=== PATIENT | male | born 1970 | race Caucasian/White ===

== ENCOUNTER 2016-12-26 20:41 | Emergency (ER) | payer OTHER ==
--- NOTE | 2016-12-26 21:31 | ED NURSING NOTES ---
Clinical Report - Nurses [facility] [address] [place] [address] 12/26/2016 20:51 [id number] TRI[facility] Triage time 21:15 Dec 26 2016. Acuity: LEVEL 3. Chief Complaint: INJURY TO THE LEFT ARM. Alert. ANN COMA SCORE: [place] Coma Scale: 15- eyes open spontaneously (4); best verbal response- oriented x 4 (5); best motor response- obeys commands (6). --21:31 Jordon Corrales R.N. 21:17 12/26/16. BP: 140/83. HR: 99. RR: 16. O2 saturation: 97%. Temp: 98.5 F (oral). Pain level now: 810. --21:31 Jordon Corrales R.N. Weight: 107.5 kg stated. Height/Length: 70 inches Per Patient. BMI: 34. --21:25 Jordon Corrales R.N. Medications Ibuprofen Oral (Took 1000mg once today after incident). --21:19 Jordon Corrales R.N. Bactrim DS Oral. --21:23 Jordon Corrales R.N. Cephalexin Oral 500 mg x 2 tabs, 2x a day. --21:23 Jordon Corrales R.N. The following entry was struck and corrected by Jordon Corrales R.N., 21:24 (12/26/16) Reason for correction - other(correction). <<STRICKEN ENTRY-- Ibuprofen Oral. --21:19 Jordon Corrales R.N. --END STRIKE>>. Allergies Erythromycin. Definite Moderate (Hiccups to the point of nausea) --21:18 Jordon Corrales R.N. History Arrived by private vehicle. Historian: patient. Accompanied by family. Primary physician (none). ( (L) Upper arm Pain possibly from a pulled tendon. Pt states that he was lifting a 30 lb box and the incident happened.). This occurred (about 2 1/2 hours ago). ( Lifting incident). He has had weakness of the left arm. 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 PAST MEDICAL HX: Tetanus status: up-to-date. Immunizations: status is unknown. SOCIAL HX: Light tobacco smoker (cigarette)- less than 1/2 a pack per day. Alcohol use; consumes beer occasionally. No drug use. No infectious disease exposure. ABUSE ASSESSMENT: No report of abuse. FALL RISK ASSESSMENT: Fall risk assessment completed. No fall risk identified. NUTRITIONAL RISK ASSESSMENT: The nutritional risk assessment revealed no deficiencies. FUNCTIONAL ASSESSMENT: Functional assessment: no impairments noted. LEARNING NEEDS ASSESSMENT: The learning needs assessment revealed no barriers. SKIN INTEGRITY ASSESSMENT: Skin integrity risk assessment completed. No skin integrity risk identified. --21:31 Jordon Corrales R.N. PROBLEMS: Knee Injury. --21:18 Jordon Corrales R.N. Back Injury. Fall. Hypertension. --21:27 Jordon Corrales R.N. ADDITIONAL SURGERIES: Right thumb surgery . --21:18 Jordon Corrales R.N. Interventions ID band on patient. To treatment room. --21:31 Jordon Corrales R.N. PHYSICAL ASSESSMENT Ambulatory to room. GENERAL / NEURO / PSYCH: Oriented X 4. Appears in pain. EXTREMITIES: Limited ROM present in the left upper arm. Capillary refill is less than 2 seconds in the extremities. Extremity pulses are within normal limits. Neuro-vascular status intact to the extremity. Left arm: erythema. SKIN: Skin intact. Skin is warm and dry. --21:32 Jordon Corrales R.N. NURSING PROGRESS NOTES Reassurance given. Patient identifiers checked. Call light placed in reach. Side rails up. Bed placed in lowest position. Brakes of bed on. Patient ready for evaluation- chart flagged and ED physician notified. --21:32 Jordon Corrales R.N. Sling applied to left arm by obstetrics technician; distal pulses intact, sensation intact and motor function within normal limits (Instructed PT on wear and use of sling.). --22:03 John Garcia. DISPOSITION / DISCHARGE 21:54. Condition at departure: stable. No learning barriers present. Discharge instructions provided and reviewed with the patient. Reviewed medication(s) side effects, precautions, dosing and course information. Prescription(s) given to the patient. Patient verbalized understanding. Written instructions provided in Serbian. The patient was discharged home. He left the Emergency Department ambulatory and via private vehicle. --04:52 Shelia Harris R.N. 21:54 12/26/16. BP: 150/93. HR: 95. RR: 15. O2 saturation: 93% on room air. Pain level now: 05/17. --04:52 Shelia Harris R.N. Locked/Released at 12/27/2016 4:52 by Shelia Harris R.N.
--- NOTE | 2016-12-26 21:31 | ED CLINICAL REPORT ---
Clinical Report - Physicians/Mid Levels [facility] [address] [place] [address] 12/26/2016 20:51 Patient: ABBY VERNON V Time Seen: 21:57 Dec 26 2016. Arrived- By private vehicle. Historian- patient. HISTORY OF PRESENT ILLNESS Chief Complaint: Injury to the left arm. The injury happened just prior to arrival. Occurred at work. 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 Denies previous injury to the area. Patient is right-hand dominant. Incident occurred at work while lifting. Denies any direct trauma or projectile injury. Patient did not take any medications for a spread to arrival.). REVIEW OF SYSTEMS The patient sustained a laceration. He has had swelling. All systems otherwise negative, except as recorded above. PAST HISTORY The patient's dominant hand is the right. He has not had a prior injury to the same area. SOCIAL HISTORY Smoker- current status unknown. Alcohol use. No drug use. ADDITIONAL NOTES The nursing notes have been reviewed. PHYSICAL EXAM Vital Signs: 12/26/2016 21:17 BP: 140/83. HR: 99. RR: 16. O2 saturation: 97%. Temp: 98.5 F. Pain level now: 8/10. Appearance: Alert. Head: Head atraumatic. ENT: Ears normal. Nose normal. Neck: Normal inspection. CVS: Normal heart rate and rhythm. Heart sounds normal. Respiratory: No respiratory distress. No decreased air movement. Skin: Skin warm. Normal skin color. Extremities: Left clavicle area. Left shoulder. No tenderness or swelling. Left arm: tenderness and severe swelling located in the anterior aspect of upper arm. (bulge mid bicep, inability to have any flexion under resistance of left arm. full rom at wrist, good distal rail loader strength, good radial pulse). No laceration, ecchymosis, foreign body or deformity. Neuro, Vascular and Tendons: Vascular status intact. Motor intact. Neuro: Oriented X 3. PROGRESS AND PROCEDURES PROCEDURES (sling: ns intact). Course of Care: Case discussed with Dr. Medrano, who recommends follow-up in the clinic. Patient was with a sling placed, and at this time does not have a ride. patient with no signs of infectious process. Injury not consistent with fracture and thus imaging at this time is not indicated. Patient is stable. Symptoms better. Patient/family counseled. Disposition: Discharged. CLINICAL IMPRESSION Rupture of the left long head and short head of the biceps tendon. The injury location is the left upper arm. No infection present. INSTRUCTIONS Apply ice. Elevate affected areas above chest level. Wear simple sling. Do not work for seven days. (Dr. Medrano ORTHO : [address] [phone]). Prescription Medications: Hydrocodone/APAP 10mg / 325mg: take 1 orally every 6 hours as needed for pain. Dispense twenty (20). No refill. Ibuprofen 800 mg tablets: take 1 tablet orally every 8 hours for 5 days, as needed for pain. Dispense fifteen (15). No refill. (Electronically signed by Marjorie Arriola P.A.-C 12/26/2016 21:59)
--- NOTE | 2016-12-26 21:31 | ED ORDER SUMMARY ---
..... Patient: ABBY VERNON V OrderSheet [facility] VisitID: [id number] [address] [place] [address] 46y, M Registration Date/Time: 12/26/2016 ORDER SHEET Weight: 107.5 kg (stated) Allergies: Erythromycin GENERAL ORDERS: Sling - arm (21:31 12/26/2016 Stefani Arango) ([facility] 21:55 Rudy RJennifer) MEDICATION ORDERS: IV FLUIDS: ORDER SHEET NOTES: [Electronically signed by Marjorie Arriola P.A.-C (21:59 12/26/2016)] [Electronically signed by Shelia Harris R.N. (04:52 12/27/2016)] [Electronically locked/signed by Shelia Harris R.N. (04:52 12/27/2016)]
--- NOTE | 2016-12-26 21:31 | ED NURSING NOTES ---
Clinical Report - Nurses [facility] [address] [place] [address] 12/26/2016 20:51 [id number] TRIAGE Triage time 21:15 Dec 26 2016. Acuity: LEVEL 3. Chief Complaint: INJURY TO THE LEFT ARM. Alert. ANN COMA SCORE: [place] Coma Scale: 15- eyes open spontaneously (4); best verbal response- oriented x 4 (5); best motor response- obeys commands (6). --21:31 Jorodn Corrales R.N. 21:17 12/26/16. BP: 140/83. HR: 99. RR: 16. O2 saturation: 97%. Temp: 98.5 F (oral). Pain level now: 810. --21:31 Jordon Corrales R.N. Weight: 107.5 kg stated. Height/Length: 70 inches Per Patient. BMI: 34. --21:25 Jordon Corrales R.N. Medications Ibuprofen Oral (Took 1000mg once today after incident). --21:19 Jordon Corrales R.N. Bactrim DS Oral. --21:23 Jordon Corrales R.N. Cephalexin Oral 500 mg x 2 tabs, 2x a day. --21:23 Jordon Corrales R.N. The following entry was struck and corrected by Jordon Corrales R.N., 21:24 (12/26/16) Reason for correction - other(correction). <<STRICKEN ENTRY-- Ibuprofen Oral. --21:19 Jordon Corrales R.N. --END STRIKE>>. Allergies Erythromycin. Definite Moderate (Hiccups to the point of nausea) --21:18 Jordon Corrales R.N. History Arrived by private vehicle. Historian: patient. Accompanied by family. Primary physician (none). ( (L) Upper arm Pain possibly from a pulled tendon. Pt states that he was lifting a 30 lb box and the incident happened.). This occurred (about 2 1/2 hours ago). ( Lifting incident). He has had weakness of the left arm. 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 PAST MEDICAL HX: Tetanus status: up-to-date. Immunizations: status is unknown. SOCIAL HX: Light tobacco smoker (cigarette)- less than 1/2 a pack per day. Alcohol use; consumes beer occasionally. No drug use. No infectious disease exposure. ABUSE ASSESSMENT: No report of abuse. FALL RISK ASSESSMENT: Fall risk assessment completed. No fall risk identified. NUTRITIONAL RISK ASSESSMENT: The nutritional risk assessment revealed no deficiencies. FUNCTIONAL ASSESSMENT: Functional assessment: no impairments noted. LEARNING NEEDS ASSESSMENT: The learning needs assessment revealed no barriers. SKIN INTEGRITY ASSESSMENT: Skin integrity risk assessment completed. No skin integrity risk identified. --21:31 Jordon Corrales R.N. PROBLEMS: Knee Injury. --21:18 Jordon Corrales R.N. Back Injury. Fall. Hypertension. --21:27 Jordon Corrales R.N. ADDITIONAL SURGERIES: Right thumb surgery . --21:18 Jordon Corrales R.N. Interventions ID band on patient. To treatment room. --21:31 Jordon Corrales R.N. PHYSICAL ASSESSMENT Ambulatory to room. GENERAL / NEURO / PSYCH: Oriented X 4. Appears in pain. EXTREMITIES: Limited ROM present in the left upper arm. Capillary refill is less than 2 seconds in the extremities. Extremity pulses are within normal limits. Neuro-vascular status intact to the extremity. Left arm: erythema. SKIN: Skin intact. Skin is warm and dry. --21:32 Jordon Corrales R.N. NURSING PROGRESS NOTES Reassurance given. Patient identifiers checked. Call light placed in reach. Side rails up. Bed placed in lowest position. Brakes of bed on. Patient ready for evaluation- chart flagged and ED physician notified. --21:32 Jordon Corrales R.N. Sling applied to left arm by service desk technician; distal pulses intact, sensation intact and motor function within normal limits (Instructed PT on wear and use of sling.). --22:03 John Garcia. DISPOSITION / DISCHARGE 21:54. Condition at departure: stable. No learning barriers present. Discharge instructions provided and reviewed with the patient. Reviewed medication(s) side effects, precautions, dosing and course information. Prescription(s) given to the patient. Patient verbalized understanding. Written instructions provided in Portuguese. The patient was discharged home. He left the Emergency Department ambulatory and via private vehicle. --04:52 Shelia Harris R.N. 21:54 12/26/16. BP: 150/93. HR: 95. RR: 15. O2 saturation: 93% on room air. Pain level now: 05/17. --04:52 Shelia Harris R.N. Locked/Released at 12/27/2016 4:52 by Shelia Harris R.N.
--- NOTE | 2016-12-26 21:31 | ED CLINICAL REPORT ---
Clinical Report - Physicians/Mid Levels [facility] [address] [place] [address] 12/26/2016 20:51 Patient: ABBY VERNON V Time Seen: 21:57 Dec 26 2016. Arrived- By private vehicle. Historian- patient. HISTORY OF PRESENT ILLNESS Chief Complaint: Injury to the left arm. The injury happened just prior to arrival. Occurred at work. 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 Denies previous injury to the area. Patient is right-hand dominant. Incident occurred at work while lifting. Denies any direct trauma or projectile injury. Patient did not take any medications for a spread to arrival.). REVIEW OF SYSTEMS The patient sustained a laceration. He has had swelling. All systems otherwise negative, except as recorded above. PAST HISTORY The patient's dominant hand is the right. He has not had a prior injury to the same area. SOCIAL HISTORY Smoker- current status unknown. Alcohol use. No drug use. ADDITIONAL NOTES The nursing notes have been reviewed. PHYSICAL EXAM Vital Signs: 12/26/2016 21:17 BP: 140/83. HR: 99. RR: 16. O2 saturation: 97%. Temp: 98.5 F. Pain level now: 8/10. Appearance: Alert. Head: Head atraumatic. ENT: Ears normal. Nose normal. Neck: Normal inspection. CVS: Normal heart rate and rhythm. Heart sounds normal. Respiratory: No respiratory distress. No decreased air movement. Skin: Skin warm. Normal skin color. Extremities: Left clavicle area. Left shoulder. No tenderness or swelling. Left arm: tenderness and severe swelling located in the anterior aspect of upper arm. (bulge mid bicep, inability to have any flexion under resistance of left arm. full rom at wrist, good distal chocolate refining roller strength, good radial pulse). No laceration, ecchymosis, foreign body or deformity. Neuro, Vascular and Tendons: Vascular status intact. Motor intact. Neuro: Oriented X 3. PROGRESS AND PROCEDURES PROCEDURES (sling: ns intact). Course of Care: Case discussed with Dr. Medrano, who recommends follow-up in the clinic. Patient was with a sling placed, and at this time does not have a ride. patient with no signs of infectious process. Injury not consistent with fracture and thus imaging at this time is not indicated. Patient is stable. Symptoms better. Patient/family counseled. Disposition: Discharged. CLINICAL IMPRESSION Rupture of the left long head and short head of the biceps tendon. The injury location is the left upper arm. No infection present. INSTRUCTIONS Apply ice. Elevate affected areas above chest level. Wear simple sling. Do not work for seven days. (Dr. Medrano [facility]TH[facility] : [address] [phone]). Prescription Medications: Hydrocodone/APAP 10mg / 325mg: take 1 orally every 6 hours as needed for pain. Dispense twenty (20). No refill. Ibuprofen 800 mg tablets: take 1 tablet orally every 8 hours for 5 days, as needed for pain. Dispense fifteen (15). No refill. (Electronically signed by Marjorie Arriola P.A.-C 12/26/2016 21:59)
--- NOTE | 2016-12-26 21:31 | ED ORDER SUMMARY ---
..... Patient: ABBY VERNON V OrderSheet [facility] VisitID: [id number] [address] [place] [address] 46y, M Registration Date/Time: 12/26/2016 ORDER SHEET Weight: 107.5 kg (stated) Allergies: Erythromycin GENERAL ORDERS: Sling - arm (21:31 12/26/2016 Stefani Arango) ([facility] 21:55 Rudy RJennifer) MEDICATION ORDERS: IV FLUIDS: ORDER SHEET NOTES: [Electronically signed by Marjorie Arriola P.A.-C (21:59 12/26/2016)] [Electronically signed by Shelia Harris R.N. (04:52 12/27/2016)] [Electronically locked/signed by Shelia Harris R.N. (04:52 12/27/2016)]
--- NOTE | 2016-12-27 04:53 | ED MAR SUMMARY ---
..... Medication Administration Record [facility] [address] [place], [place] [id number] Patient: ABBY VERNON V Visit ID: [id number] 46y, M Weight: 107.5 kg Height/Length: 70 in BMI: 34 ALLERGIES: Erythromycin
--- NOTE | 2016-12-27 04:53 | ED DISCHARGE INSTRUCTIONS ---
Patient: ABBY VERNON V General Instructions [facility] VisitID: [id number] [place] [address] 46y, M Registration Date/Time: 12/26/2016 Rupture of the left long head and short head of the biceps tendon. The injury location is the left upper arm. No infection present. INSTRUCTIONS Apply ice. Elevate affected areas above chest level. Wear simple sling. Do not work for seven days. (Dr. Medrano ORTHO : [address] [facility] [phone]). Prescription Medications: Hydrocodone/APAP 10mg / 325mg: take 1 orally every 6 hours as needed for pain. Dispense twenty (20). No refill. Ibuprofen 800 mg tablets: take 1 tablet orally every 8 hours for 5 days, as needed for pain. Dispense fifteen (15). No refill. ADDITIONAL INFORMATION Laceration, Tendon A tendon is a thick cord that joins muscle to bone and causes the joints to bend and straighten. One of your tendons has been cut. A tendon cut may be partial or complete. A complete cut of the tendon and a severe partial cut will need stitches (sutures) in the tendon. Smaller cuts in the tendon do not require stitches; however, the cut in the skin will need to be closed with stitches or rodrigo. A cut tendon takes about 6 weeks to regain its full strength. Forceful use of the tendon too soon could cause the weakened tendon to tear apart. Antibiotics may be prescribed to reduce the risk of infection in the tendon. Some tendons are located close to the nerves, therefore, it is possible to bruise or cut a nerve when you injure a tendon. This may cause numbness or weakness of the hand or foot. Because of local pain and swelling at the time of injury it can be difficult to fully assess nerve function. If you notice numbness or weakness that persists, notify your doctor. A nerve repair can be done 5-10 days after injury. Home Care: Keep the injured part elevated during the first 48 hours to reduce swelling and pain. If a splint was applied, leave it in place until your next exam (unless told otherwise). Keep the part dry when bathing by covering it in a plastic bag sealed with a rubber band at the top end. If no splint was applied, you may change the bandage after 24 hours and begin cleaning the wound once a day with soap and water. After removing the bandage, wash the area with soap and water. Use a wet cotton swab (Q tip) to loosen and remove any blood or crust that forms.After cleaning, apply a thin layer of [id number]-[id number] antibiotic ointment. This will keep the wound clean and make it easier to remove the stitches or rodrigo. Reapply a fresh bandage. You may remove the bandage to shower as usual after the first 24 hours, but do not soak the area in water (no swimming) until the stitches or rodrigo are removed. If antibiotics were prescribed, take them until they are gone. You may use acetaminophen (Tylenol) or ibuprofen (Motrin, Advil) to control pain, unless another pain medicine was prescribed. [ NOTE : If you have chronic liver or kidney disease or ever had a stomach ulcer or GI bleeding, talk with your doctor before using these medicines.] Follow Up: Most skin wounds heal within ten days. However, an infection may sometimes occur despite proper treatment. Therefore, check your wound daily f or the warning signs listed below. Stitches placed in the tendon will not need to be removed. Stitches or rodrigo placed in the skin will be removed in 7-10 days. Be sure to keep your appointment for removal. At your follow up visit, talk to your doctor about when to begin exercising the tendon in order to prevent stiffness. Notify your doctor if you notice persistent numbness or weakness in the injured extremity.We will notify you of any new findings that may affect your care. Get Prompt Medical Attention If Any Of The Following Occur: Increasing pain in the wound Redness, swelling or pus coming from the wound Fever of 100.4F (38C) or higher, or as directed by your healthcare provider Stitches or rodrigo come apart or fall out before your next appointment Bleeding is not controlled by direct pressure Sling A sling is designed to support your arm in a position of rest. It is used for injuries of the hand, forearm, upper arm, and shoulder. A shoulder that is immobilized too long can become stiff and lose range of motion. Follow up with your doctor as advised and do not use the sling longer than directed. Home Use: Leave the sling in place as long as directed by your doctor. Unless told otherwise, you may remove it when bathing, dressing, and when you go to sleep. The sling is adjustable. If it becomes loose, adjust it so that your forearm is horizontal (level with the ground). Your hand should be level with the elbow. Hydrocodone Bitartrate, Acetaminophen Oral tablet What is this medicine? ACETAMINOPHEN; HYDROCODONE (a set a GETACHEW ulises fen; wero droe KOE done) is a pain reliever. It is used to treat mild to moderate pain. How should I use this medicine? Take this medicine by mouth. Swallow it with a full glass of water. Follow the directions on the prescription label. If the medicine upsets your stomach, take the medicine with food or milk. Do not take more than you are told to take. Talk to your boom stick man regarding the use of this medicine in children. This medicine is not approved for use in children. What side effects may I notice from receiving this medicine? Side effects that you should report to your doctor or health neonatal intensive care unit nurse as soon as possible: allergic reactions like skin rash, itching or hives, swelling of the face, lips, or tongue breathing problems confusion feeling faint or lightheaded, falls stomach pain yellowing of the eyes or skin Side effects that usually do not require medical attention (report to your doctor or health neonatal intensive care unit nurse if they continue or are bothersome): nausea, vomiting stomach upset What may interact with this medicine? alcohol antihistamines isoniazid medicines for depression, anxiety, or psychotic disturbances medicines for sleep muscle relaxants naltrexone narcotic medicines (opiates) for pain phenobarbital ritonavir tramadol What if I miss a dose? If you miss a dose, take it as soon as you can. If it is almost time for your next dose, take only that dose. Do not take double or extra doses. Where should I keep my medicine? Keep out of the reach of children. This medicine can be abused. Keep your medicine in a safe place to protect it from theft. Do not share this medicine with anyone. Selling or giving away this medicine is dangerous and against the law. Store at room temperature between 15 and 30 degrees C (59 and 86 degrees F). Protect from light. Keep container tightly closed. Throw away any unused medicine after the expiration date. Discard unused medicine and used packaging carefully. Pets and children can be harmed if they find used or lost packages. What should I tell my health care provider before I take this medicine? They need to know if you have any of these conditions: brain tumor Crohn's disease, inflammatory bowel disease, or ulcerative colitis drink more than 3 alcohol-containing drinks per day drug abuse or addiction head injury heart or circulation problems kidney disease or problems going to the bathroom liver disease lung disease, asthma, or breathing problems an unusual or allergic reaction to acetaminophen, hydrocodone, other opioid analgesics, other medicines, foods, dyes, or preservatives or trying to get breast-feeding What should I watch for while using this medicine? Tell your doctor or health neonatal intensive care unit nurse if your pain does not go away, if it gets worse, or if you have new or a different type of pain. You may develop tolerance to the medicine. Tolerance means that you will need a higher dose of the medicine for pain relief. Tolerance is normal and is expected if you take the medicine for a long time. Do not suddenly stop taking your medicine because you may develop a severe reaction. Your body becomes used to the medicine. This does NOT mean you are addicted. Addiction is a behavior related to getting and using a drug for a non-medical reason. If you have pain, you have a medical reason to take pain medicine. Your doctor will tell you how much medicine to take. If your doctor wants you to stop the medicine, the dose will be slowly lowered over time to avoid any side effects. You may get drowsy or dizzy when you first start taking the medicine or change doses. Do not drive, use machinery, or do anything that may be dangerous until you know how the medicine affects you. Stand or sit up slowly. There are different types of narcotic medicines (opiates) for pain. If you take more than one type at the same time, you may have more side effects. Give your health care provider a list of all medicines you use. Your doctor will tell you how much medicine to take. Do not take more medicine than directed. Call emergency for help if you have problems breathing. The medicine will cause constipation. Try to have a bowel movement at least every 2 to 3 days. If you do not have a bowel movement for 3 days, call your doctor or health neonatal intensive care unit nurse. Too much acetaminophen can be very dangerous. Do not take Tylenol (acetaminophen) or medicines that contain acetaminophen with this medicine. Many non-prescription medicines contain acetaminophen. Always read the labels carefully. You have been given the following additional information: Laceration, Tendon Sling Hydrocodone Bitartrate, Acetaminophen Oral tablet Do not work for seven days. (Electronically signed by Marjorie Arriola P.A.-C 12/26/2016 21:59)
--- NOTE | 2016-12-27 04:53 | ED DISCHARGE INSTRUCTIONS ---
Patient: ABBY VERNON V General Instructions [facility] VisitID: [id number] [place] [address] 46y, M Registration Date/Time: 12/26/2016 Rupture of the left long head and short head of the biceps tendon. The injury location is the left upper arm. No infection present. INSTRUCTIONS Apply ice. Elevate affected areas above chest level. Wear simple sling. Do not work for seven days. (Dr. Medrano ORTHO : [address] [facility] [phone]). Prescription Medications: Hydrocodone/APAP 10mg / 325mg: take 1 orally every 6 hours as needed for pain. Dispense twenty (20). No refill. Ibuprofen 800 mg tablets: take 1 tablet orally every 8 hours for 5 days, as needed for pain. Dispense fifteen (15). No refill. ADDITIONAL INFORMATION Laceration, Tendon A tendon is a thick cord that joins muscle to bone and causes the joints to bend and straighten. One of your tendons has been cut. A tendon cut may be partial or complete. A complete cut of the tendon and a severe partial cut will need stitches (sutures) in the tendon. Smaller cuts in the tendon do not require stitches; however, the cut in the skin will need to be closed with stitches or rodrigo. A cut tendon takes about 6 weeks to regain its full strength. Forceful use of the tendon too soon could cause the weakened tendon to tear apart. Antibiotics may be prescribed to reduce the risk of infection in the tendon. Some tendons are located close to the nerves, therefore, it is possible to bruise or cut a nerve when you injure a tendon. This may cause numbness or weakness of the hand or foot. Because of local pain and swelling at the time of injury it can be difficult to fully assess nerve function. If you notice numbness or weakness that persists, notify your doctor. A nerve repair can be done 5-10 days after injury. Home Care: Keep the injured part elevated during the first 48 hours to reduce swelling and pain. If a splint was applied, leave it in place until your next exam (unless told otherwise). Keep the part dry when bathing by covering it in a plastic bag sealed with a rubber band at the top end. If no splint was applied, you may change the bandage after 24 hours and begin cleaning the wound once a day with soap and water. After removing the bandage, wash the area with soap and water. Use a wet cotton swab (Q tip) to loosen and remove any blood or crust that forms.After cleaning, apply a thin layer of ghos-slh-[id number] antibiotic ointment. This will keep the wound clean and make it easier to remove the stitches or rodrigo. Reapply a fresh bandage. You may remove the bandage to shower as usual after the first 24 hours, but do not soak the area in water (no swimming) until the stitches or rodrigo are removed. If antibiotics were prescribed, take them until they are gone. You may use acetaminophen (Tylenol) or ibuprofen (Motrin, Advil) to control pain, unless another pain medicine was prescribed. [ NOTE : If you have chronic liver or kidney disease or ever had a stomach ulcer or GI bleeding, talk with your doctor before using these medicines.] Follow Up: Most skin wounds heal within ten days. However, an infection may sometimes occur despite proper treatment. Therefore, check your wound daily f or the warning signs listed below. Stitches placed in the tendon will not need to be removed. Stitches or rodrigo placed in the skin will be removed in 7-10 days. Be sure to keep your appointment for removal. At your follow up visit, talk to your doctor about when to begin exercising the tendon in order to prevent stiffness. Notify your doctor if you notice persistent numbness or weakness in the injured extremity.We will notify you of any new findings that may affect your care. Get Prompt Medical Attention If Any Of The Following Occur: Increasing pain in the wound Redness, swelling or pus coming from the wound Fever of 100.4F (38C) or higher, or as directed by your healthcare provider Stitches or rodrigo come apart or fall out before your next appointment Bleeding is not controlled by direct pressure Sling A sling is designed to support your arm in a position of rest. It is used for injuries of the hand, forearm, upper arm, and shoulder. A shoulder that is immobilized too long can become stiff and lose range of motion. Follow up with your doctor as advised and do not use the sling longer than directed. Home Use: Leave the sling in place as long as directed by your doctor. Unless told otherwise, you may remove it when bathing, dressing, and when you go to sleep. The sling is adjustable. If it becomes loose, adjust it so that your forearm is horizontal (level with the ground). Your hand should be level with the elbow. Hydrocodone Bitartrate, Acetaminophen Oral tablet What is this medicine? ACETAMINOPHEN; HYDROCODONE (a set a GETACHEW ulises fen; wero droe KOE done) is a pain reliever. It is used to treat mild to moderate pain. How should I use this medicine? Take this medicine by mouth. Swallow it with a full glass of water. Follow the directions on the prescription label. If the medicine upsets your stomach, take the medicine with food or milk. Do not take more than you are told to take. Talk to your surface grinding machine hand regarding the use of this medicine in children. This medicine is not approved for use in children. What side effects may I notice from receiving this medicine? Side effects that you should report to your doctor or health care clinician as soon as possible: allergic reactions like skin rash, itching or hives, swelling of the face, lips, or tongue breathing problems confusion feeling faint or lightheaded, falls stomach pain yellowing of the eyes or skin Side effects that usually do not require medical attention (report to your doctor or health care clinician if they continue or are bothersome): nausea, vomiting stomach upset What may interact with this medicine? alcohol antihistamines isoniazid medicines for depression, anxiety, or psychotic disturbances medicines for sleep muscle relaxants naltrexone narcotic medicines (opiates) for pain phenobarbital ritonavir tramadol What if I miss a dose? If you miss a dose, take it as soon as you can. If it is almost time for your next dose, take only that dose. Do not take double or extra doses. Where should I keep my medicine? Keep out of the reach of children. This medicine can be abused. Keep your medicine in a safe place to protect it from theft. Do not share this medicine with anyone. Selling or giving away this medicine is dangerous and against the law. Store at room temperature between 15 and 30 degrees C (59 and 86 degrees F). Protect from light. Keep container tightly closed. Throw away any unused medicine after the expiration date. Discard unused medicine and used packaging carefully. Pets and children can be harmed if they find used or lost packages. What should I tell my health care provider before I take this medicine? They need to know if you have any of these conditions: brain tumor Crohn's disease, inflammatory bowel disease, or ulcerative colitis drink more than 3 alcohol-containing drinks per day drug abuse or addiction head injury heart or circulation problems kidney disease or problems going to the bathroom liver disease lung disease, asthma, or breathing problems an unusual or allergic reaction to acetaminophen, hydrocodone, other opioid analgesics, other medicines, foods, dyes, or preservatives or trying to get breast-feeding What should I watch for while using this medicine? Tell your doctor or health care clinician if your pain does not go away, if it gets worse, or if you have new or a different type of pain. You may develop tolerance to the medicine. Tolerance means that you will need a higher dose of the medicine for pain relief. Tolerance is normal and is expected if you take the medicine for a long time. Do not suddenly stop taking your medicine because you may develop a severe reaction. Your body becomes used to the medicine. This does NOT mean you are addicted. Addiction is a behavior related to getting and using a drug for a non-medical reason. If you have pain, you have a medical reason to take pain medicine. Your doctor will tell you how much medicine to take. If your doctor wants you to stop the medicine, the dose will be slowly lowered over time to avoid any side effects. You may get drowsy or dizzy when you first start taking the medicine or change doses. Do not drive, use machinery, or do anything that may be dangerous until you know how the medicine affects you. Stand or sit up slowly. There are different types of narcotic medicines (opiates) for pain. If you take more than one type at the same time, you may have more side effects. Give your health care provider a list of all medicines you use. Your doctor will tell you how much medicine to take. Do not take more medicine than directed. Call emergency for help if you have problems breathing. The medicine will cause constipation. Try to have a bowel movement at least every 2 to 3 days. If you do not have a bowel movement for 3 days, call your doctor or health care clinician. Too much acetaminophen can be very dangerous. Do not take Tylenol (acetaminophen) or medicines that contain acetaminophen with this medicine. Many non-prescription medicines contain acetaminophen. Always read the labels carefully. You have been given the following additional information: Laceration, Tendon Sling Hydrocodone Bitartrate, Acetaminophen Oral tablet Do not work for seven days. (Electronically signed by Marjorie Arriola P.A.-C 12/26/2016 21:59)
--- NOTE | 2016-12-27 04:53 | ED MAR SUMMARY ---
..... Medication Administration Record [facility] [address] [place], [place] [id number] Patient: ABBY VERNON V Visit ID: [id number] 46y, M Weight: 107.5 kg Height/Length: 70 in BMI: 34 ALLERGIES: Erythromycin
--- NOTE | 2016-12-27 04:53 | ED MED RECONCILIATION SUMMARY ---
Patient: ABBY VERNON V Medication Reconciliation Report [facility] VisitID: [id number] [address] [place] [address] 46y, M Registration Date/Time: 12/26/2016 Weight: 107.5 kg Height/Length: 70 in. BMI: 34.0 ALLERGIES: Erythromycin The patient's Home Medications are listed below: THE FOLLOWING MEDICATIONS NEED TO BE RECONCILED: Bactrim DS Oral Cephalexin Oral 500 mg x 2 tabs, 2x a day Ibuprofen Oral, Took 1000mg once today after incident The source(s) of the original Home Medication information: Not obtained. The following Medications were given to the patient in the Emergency Department: None. The following Medications were prescribed to the patient: Hydrocodone/APAP 10mg / 325mg: take 1 orally every 6 hours as needed for pain. Dispense twenty (20). No refill. -- Marjorie Arriola, P.A.-C Ibuprofen 800 mg tablets: take 1 tablet orally every 8 hours for 5 days, as needed for pain. Dispense fifteen (15). No refill. -- Marjorie Arriola, P.A.-C
--- NOTE | 2016-12-27 04:53 | ED MED RECONCILIATION SUMMARY ---
Patient: ABBY VERNON V Medication Reconciliation Report [facility] VisitID: [id number] [address] [place] [address] 46y, M Registration Date/Time: 12/26/2016 Weight: 107.5 kg Height/Length: 70 in. BMI: 34.0 ALLERGIES: Erythromycin The patient's Home Medications are listed below: THE FOLLOWING MEDICATIONS NEED TO BE RECONCILED: Bactrim DS Oral Cephalexin Oral 500 mg x 2 tabs, 2x a day Ibuprofen Oral, Took 1000mg once today after incident The source(s) of the original Home Medication information: Not obtained. The following Medications were given to the patient in the Emergency Department: None. The following Medications were prescribed to the patient: Hydrocodone/APAP 10mg / 325mg: take 1 orally every 6 hours as needed for pain. Dispense twenty (20). No refill. -- Marjorie Arriola, P.A.-C Ibuprofen 800 mg tablets: take 1 tablet orally every 8 hours for 5 days, as needed for pain. Dispense fifteen (15). No refill. -- Marjorie Arriola, P.A.-C
[2016-12-29] MEDS ORDERED: KEFLEX750 MG PO (12:21)
[2016-12-29] MEDS ORDERED: IBUPROFEN600 MG PO (12:21)
[2016-12-29] MEDS ORDERED: ENDOCET1 TAB PO (12:22)
== END 2016-12-26 21:54 | disposition home or self-care (01) ==
LOC: ED SRH 20:41
DX: S46.112A Strain of muscle, fascia and tendon of long head of biceps, left arm, initial encounter (principal); X50.0XXA Overexertion from strenuous movement or load, initial encounter; Y93.9 Activity, unspecified; Y92.9 Unspecified place or not applicable; Y99.0 Civilian activity done for income or pay

== ENCOUNTER 2017-01-03 08:28 | Day surgery (SDC) | payer OTHER ==
[~2017-01-03] VITALS: Ht 177.8 cm; Wt 104.5 kg
[~2017-01-03 08:28] MED LIST: ENDOCET1 TAB PO; IBUPROFEN600 MG PO; KEFLEX750 MG PO
--- NOTE | 2017-01-03 09:27 | NUR ---
PRE OP INSTRUCTIONS GIVEN AND SAFETY ISSUES DISCUSSED PT AND SPOUSE HAD QUESTIONS ANSWERED PT CONFIRMED PROCEDURE PT VERIFIED SIGNATURE PT MARKED SITE PT VISITING WITH SPOUSE PLUS WATCHING TV
--- NOTE | 2017-01-03 12:37 | Preoperative Progress Note ---
Preop Note Details Current Status: Changes Physical Exam: No Changes Necessity: Still desired/necessary Other: EKG & CXR reports WNL
--- NOTE | 2017-01-03 12:37 | Preoperative Progress Note ---
Preop Note Details Current Status: Changes Physical Exam: No Changes Necessity: Still desired/necessary Other: EKG & CXR reports WNL
--- NOTE | 2017-01-03 14:29 | Postoperative Progress Note ---
Postop Progress Note Preoperate Diagnosis: L Distal Biceps Brachii Tendon Rupture Postoperative Diagnosis: same Surgeon: Malik Javier MD Anesthesia: General ETT Findings: See Dictation Procedure: L distal biceps tendon repair Complications? No Condition: Stable EBL: Minimal Fluid(s): 1 Liter Blood Administered: None Specimen(s) removed? No Grafts or Implants? No . (See nursing notes for details of grafts/implants)
--- NOTE | 2017-01-03 14:32 | NUR ---
PATIENT ARRIVED TO PACU AT 1428. SPONT RESP. SLEEPING. VITALS STABLE. DRESSINGS TO L ARM CLEAN, DRY AND INTACT. BRACE IN PLACE. EXTREMITY ELEVATED WITH ICE APPLIED. WILL CONTINUE TO MONITOR.
--- NOTE | 2017-01-03 14:38 | Provider's Discharge Care Plan ---
Problem, Goal, Plan Problem List 1. Rupture of left distal biceps tendon Goals: Improve function, Increase independence Instructions: Follow up as directed, Take meds as directed
--- NOTE | 2017-01-03 14:38 | Provider's Discharge Care Plan ---
Problem, Goal, Plan Problem List 1. Rupture of left distal biceps tendon Goals: Improve function, Increase independence Instructions: Follow up as directed, Take meds as directed
--- NOTE | 2017-01-03 15:51 | NUR ---
PATIENT RECEIVED INTERSCALINE BLOCK BY ANESTHESIA PROVIDER. VITALS STABLE THROUGHOUT.
--- NOTE | 2017-01-03 16:08 | NUR ---
PATIENT STATES PAIN AFTER BLOCK IS 4/10 AND "MUCH BETTER". VITALS STABLE. TOLERATING ICE CHIPS WITHOUT NAUSEA. DRESSINGS REMAIN C,D,I. ABLE TO WIGGLE FINGERS- FINGERS PINK AND WARM.
--- NOTE | 2017-01-03 16:27 | NUR ---
PT RETURNED FROM PACU LEFT ARM ELEVATED ICE TO ARM BRACE IN PLACE CAP REFILL LESS THAN 3 SEC
--- NOTE | 2017-01-03 17:12 | NUR ---
PT STATED BED VERY UNCOMFORTABLE ATTEMPTED ASSIST TO CHAIR. PT BECAME NAUSEATED. VOMITED ABOUT 250CC LIQUIDS STATED FELT MUCH BETTER PT THEN TO CHAIR STATED BODY FEELS BETTER IN CHAIR
[2017-01-03 17:21] VITALS: BP 147/90
--- NOTE | 2017-01-03 17:49 | NUR ---
PT STATED PAIN LESS AFTER MED NAUSEA GONE ASKING TO GO HOME REVIEWED DISCHARGE INSTRUCTIONS VERBAL AND WRITTEN PT EXPRESSED UNDERSTANDING PT RECITED WHAT TO DO WITH DRESSING AND HOW MUCH MOVEMENT OF ARM PT DISCHARGED PER WC ACCOMPANIED BY SPOUSE
--- NOTE | 2017-01-03 21:29 | OPERATIVE REPORT ---
DATE OF SURGERY: 01/03/2017 SURGEON: Malik Javier MD PREOPERATIVE DIAGNOSIS: 1. Left distal biceps brachy tendon rupture POSTOPERATIVE DIAGNOSIS: 1. Left distal biceps brachy tendon rupture PROCEDURE PERFORMED: 1. Left distal biceps tendon repair with 2-incision technique ANESTHESIA: General. ESTIMATED BLOOD LOSS: Minimal. TOURNIQUET TIME: 59 minutes at 250 mmHg. FLUIDS: Blood replacement: IV crystalloid fluids only. COMPLICATIONS: None apparent. CONDITION: The patient leaving the operating room stable and satisfactory. 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 He noted a change in his biceps muscle contour and cramping in the biceps, he was seen in the emergency department and diagnosed with a complete biceps tendon tear and referred to the orthopedic clinic where he was seen on 12/28/2016 and examination confirmed the absence of a palpable biceps tendon and change in contour of the biceps muscle belly consistent with a complete biceps tendon tear. He was indicated for open repair of the tendon to restore strength and the 2-incision approach to minimize risk of nerve damage, accepting risks of heterotopic bone formation. He has already filled his prescription for indomethacin, to take a total of 25 mg daily for 6 weeks postoperatively to help prevent heterotopic bone and has had a hinged elbow brace provided. He understood the goals of surgery, to restore strength and function, the risks to failure to obtain the goals, infection, heterotopic bone formation, nerve injury, and others. All of his questions were further invited and answered to his satisfaction. He freely and willingly signed the consent form, denied any interval change in his medical condition since he was seen in clinic. His operative site was marked by myself with his consent. He was seen and interviewed by anesthetic and nursing team members as well. Postoperative plan: The patient will return to clinic to see me on 01/08/2017. The brace was set with an extension block at 60 degrees of flexion as there was little tension on the repair until that point on examination under anesthesia. He will leave his dressing on until he returns to clinic. He will take his indomethacin and pain medications as necessary. I also advised him to take aspirin 325 mg twice daily for 6 weeks for thromboembolic prophylaxis. He will call or return sooner should he develop any signs or symptoms of infection or thromboembolic disease. He is to do no lifting or active work with his biceps for 6 weeks postoperatively. We will gradually advance the extension block as his passive range of motion returns. He will need physical therapy or occupational therapy and it is not anticipated that he will be able to return to full duty work until likely 3 months postoperatively, but he may be released to light duty work sooner. SURGICAL TECHNIQUE: The patient was identified in the preoperative holding area. The above documented consent discussion and interval history and physical was completed. He was brought back to the operating room, placed supine on the OR table where general anesthesia was administered along with 2 g of cefazolin for antibiotic prophylaxis. Pneumatic compression devices were run on both lower extremities for thromboembolic prophylaxis. A surgical pause was completed, confirming the correct patient, operative site, procedure, appropriate availability of implants and instrumentation. Everyone in the room including surgical nursing, anesthetic members were in agreement and wished to proceed. We also reviewed his allergies. The arm was then circumferentially prepped from above the axilla and under the chest wall and back using ChloraPrep in a sterile fashion down to the tips of the finger. He was then draped free in a waterproof sterile fashion for surgery. Sterile tourniquet was placed, but not inflated initially. A transverse incision was made in the antecubital fossa on the left side with slight curved extensions to extend proximally and distally, if needed. The tourniquet was not inflated so that vessels could be easily seen during the antecubital dissection. We carried the incision sharply through skin and subcutaneous tissue was divided with Metzenbaum scissors, taking care to preserve neurovascular structures. The antecubital fascia was then divided transversely and retractors were placed and we were able to retrieve the biceps tendon from the upper arm with a Adolfo clamp. The degenerative distal end was sharply trimmed with a fresh 15-blade scalpel. A #2 FiberWire was then advanced up one side of the tendon and down the other using a modified Ruff/Krackow locking stitch. It obtained excellent purchase. The excursion in the tendon and muscle belly was appropriate. Next, the tunnel for the biceps tendon was identified and with a gloved finger the bicipital tuberosity was also identified. With the arm in maximum supination, a Pean clamp was placed down the tunnel directly adjacent to the bicipital tuberosity and tented the dorsal proximal forearm skin where a counter-incision was made sharply through skin and dermis, divided the fascia over the extensor muscles, pronated the hand and delivered the bicipital tuberosity into the wound. Remnants of the biceps tendon tissue were removed with rongeur and then a 4 mm bur was used to excavate the bicipital tuberosity. The edges of this were smoothed. Next, the #2 FiberWire sutures in the biceps tendon were delivered through the biceps tendon tunnel into the dorsal wound and two 2 mm drill holes were drilled adjacent to the socket. One #2 FiberWire tail was thread through each hole and the tendon was pulled down into the socket and the #2 FiberWire provisionally tied, the arm gently pronated to ensure that the biceps tendon was in the socket and once this was confirmed, the #2 FiberWire was stoutly tied over the bone bridge. The repair was tested to make sure that the tendon had good excursion and there was not excessive tension on the repair until approximately 45-60 degrees of extension was reached. The wounds were copiously irrigated to remove any bone debris, infiltrated with 0.25% Marcaine with epinephrine and closed in layers using [id number] 2-0 Vicryl for the fascia of the dorsal wound, inverted undyed 2-0 Vicryl for the subdermal suture in both places and 3-0 subcuticular monofilament V-Loc suture for the skin. Steri-Strips and Dermabond were then placed and Op-Site dressings were applied. The arm was wrapped with Kerlix for padding and Sherwin wraps for swelling and placed in the hinged elbow brace with the extension block set at 60 degrees and flexion not blocked. The patient was undraped, reversed from anesthesia and brought to the recovery room in stable and satisfactory condition, having tolerated the procedure well without apparent complication. All sponge, needle and instrument counts were reported correct prior to leaving the OR.
== END 2017-01-03 17:52 | disposition home or self-care (01) ==
LOC: OR SRH 08:28 → SCU SRH 08:29 → OR SRH 10:30
PROVIDERS: Orthopaedic Surgery
PROC: 0LM40ZZ Reattachment of Left Upper Arm Tendon, Open Approach (ICD-10-PCS; principal; 2017-01-03 10:30)
DX: S46.212A Strain of muscle, fascia and tendon of other parts of biceps, left arm, initial encounter (principal); X58.XXXA Exposure to other specified factors, initial encounter; Z72.0 Tobacco use
CPT/HCPCS: 29240; 50002; 60001; 70002; 80102; 80212; 80830; 82199; 82221; 82708; 82881; 83265; 83711; 84303; 84322; 84327